=== PATIENT | female | born 1940 | race Caucasian/White ===

== ENCOUNTER 2016-09-05 11:01 | Day surgery (SDC) | payer MEDICARE, OTHER ==
--- NOTE | ~2016-09-05 | EGD ---
EGD REPORT [facility] [address] [address] NAME: DACIA HERNANDEZ : [birth year] STATUS : REG [facility]#: [id number] AGE: 75 ADM/REG DATE : 09/05/16 MR#: [id number] REPORT SERV DATE: 09/05/16 DICTATED BY: SRIDEVI VINSON DATE: 09/05/16 REPORT STATUS : Draft TRANSCRIBED BY: [employer] DATE: 09/05/16 [facility] Patient Name: Dacia Hernandez Date of : 1940 Attending MD: SRIDEVI VINSON MD Procedure Date No Time: 09/05/2016 Procedure: Colonoscopy Indications: Heme positive stool, FH of Colon Cancer -distant relative Referring MD: GALLO LLAMAS Medicines: as per anesthesia Complications: No immediate complications. Procedure: After I obtained informed consent, the scope was passed under direct vision. Throughout the procedure, the patient's blood pressure, pulse, and oxygen saturations were monitored continuously. The PCF [id number] was introduced through the anus and advanced to the cecum, identified by appendiceal orifice and ileocecal valve. The colonoscopy was somewhat difficult due to restricted mobility of the colon, significant looping and a tortuous colon. The patient tolerated the procedure. The quality of the bowel preparation was adequate to identify polyps. Findings: The perianal and digital rectal examinations were normal. A few small and large-mouthed diverticula were found in the sigmoid colon. Internal hemorrhoids were found during endoscopy and were mild. Impression: - Diverticulosis in the sigmoid colon. - Internal hemorrhoids. Recommendation: - Continue present medications. Procedure Code(s): --- Professional --- 80652, Colonoscopy, flexible, proximal to splenic flexure; diagnostic, with or without collection of specimen(s) by brushing or washing, with or without colon decompression (separate procedure) Diagnosis Code(s): --- Professional --- K64.8, Other hemorrhoids K57.30, Diverticulosis of large intestine without perforation or abscess without bleeding R19.5, Other fecal abnormalities EGD REPORT [place] [id number] [address] [id number] NAME: DACIA HERNANDEZ : [birth year] STATUS : REG [facility] PAT#: [id number] AGE: 75 ADM/REG DATE : 09/05/16 MR#: [id number] REPORT SERV DATE: 09/05/16 DICTATED BY: SRIDEVI VINSON. DATE: 09/05/16 REPORT STATUS : Draft TRANSCRIBED BY: [employer] DATE: 09/05/16 Z80.0, Family history of malignant neoplasm of digestive organs CPT copyright 2013 [employer]. All rights reserved. The codes documented in this report are preliminary and upon supervisor transcribing operators review may be revised to meet current compliance requirements. SRIDEVI VINSON MD 09/05/2016 1:48 PM This report has been signed electronically. Number of Addenda: 0 Note Initiated On: 09/05/2016 1:17 PM Scope Withdrawal Time 0 hours 9 minutes 21 seconds [facility] [address] [id number]
--- NOTE | ~2016-09-05 | EGD ---
EGD REPORT [facility] [address] [address] NAME: DACIA HERNANDEZ : [birth year] STATUS : REG [facility]#: [id number] AGE: 75 ADM/REG DATE : 09/05/16 MR#: [id number] REPORT SERV DATE: 09/05/16 DICTATED BY: SRIDEVI VINSON DATE: 09/05/16 REPORT STATUS : Draft TRANSCRIBED BY: [employer] DATE: 09/05/16 End[facility] Center Patient Name: Dacia Hernandez Date of : 1940 Attending MD: SRIDEVI VISNON MD Procedure Date No Time: 09/05/2016 Procedure: Upper GI endoscopy Indications: Heme positive stool, Personal history of peptic ulcer disease Referring MD: GALLO LLAMAS Medicines: as per anesthesia Complications: No immediate complications. Procedure: Pre-Anesthesia Assessment: - ASA Grade Assessment: III - A patient with severe systemic disease. After obtaining informed consent, the endoscope was passed under direct vision. Throughout the procedure, the patient's blood pressure, pulse, and oxygen saturations were monitored continuously. The GIF H190 [id number] was introduced through the mouth, and advanced to the third part of duodenum. The upper GI endoscopy was accomplished without difficulty. The patient tolerated the procedure well. Findings: The examined esophagus was normal. Localized mild inflammation characterized by erythema was found in the gastric antrum. Biopsies were taken with a cold forceps for histology. The cardia and gastric fundus were normal on retroflexion. The examined duodenum was normal. Impression: - Normal esophagus. - Gastritis. Biopsied. - Normal examined duodenum. Recommendation: - Await pathology results. Procedure Code(s): --- Professional --- 64062, Esophagogastroduodenoscopy, flexible, transoral; with biopsy, single or multiple Diagnosis Code(s): --- Professional --- K29.70, Gastritis, unspecified, without bleeding R19.5, Other fecal abnormalities Z87.11, Personal history of peptic ulcer disease EGD REPORT [facility] [address] [place], [place] [address]. [address] NAME: DACIA HERNANDEZ : [birth year] STATUS : REG [facility] PAT#: [id number] AGE: 75 ADM/REG DATE : 09/05/16 MR#: [id number] REPORT SERV DATE: 09/05/16 DICTATED BY: SRIDEVI VINSON. DATE: 09/05/16 REPORT STATUS : Draft TRANSCRIBED BY: [employer] DATE: 09/05/16 CPT copyright 2013 [employer]. All rights reserved. The codes documented in this report are preliminary and upon edge drummer review may be revised to meet current compliance requirements. SRIDEVI VINSON MD 09/05/2016 1:18 PM This report has been signed electronically. Number of Addenda: 0 Note Initiated On: 09/05/2016 12:58 PM Scope Withdrawal Time 0 hours 0 minutes 0 seconds [address] [place] [address]
[~2016-09-05 11:01] MED LIST: ASAB PO; BEN25 PO; C1 PO; CARD30 PO; CHLORTHALID50 MG OR; COREG25 PO; COUMADIN6 MG PO; COZ25 PO; COZ50 PO; FISH-EPA1000 MG PO; GLUCCHONDR PO; GLUCOSAMINE 1500 MG; HYGROTON 25 MG25 MG OR; JANTOVEN5 MG PO; JANTOVEN7.5 MG PO; KLOR-CON M2020 MEQ PO; LIPITOR10 PO; LIPITOR20 PO; LIPITOR40 PO; MULTIPLE VIT PO; PCET PO; PLAQ200B PO; PROTONIX PO; RYTHMOL SR325 MG PO; TORSEMIDE PO; TUMSROLL PO; TYLENOL PM PO; VITAMIN C100 MG PO; VITAMIN D31000 UNIT PO; ZANTAC150 MG PO
[2016-09-05 11:52] LABS: INTERNATIONAL NORMAL RATI 1.7 UNITS (-)
== END 2016-09-05 23:59 | disposition home or self-care (01) ==
LOC: DMU 11:01
PROVIDERS: Anesthesiology; Internal Medicine Gastroenterology
PROC: 0DB68ZX Excision of Stomach, Via Natural or Artificial Opening Endoscopic, Diagnostic (ICD-10-PCS; principal; 2016-09-05 09:00)
PROC: 0DJD8ZZ Inspection of Lower Intestinal Tract, Via Natural or Artificial Opening Endoscopic (ICD-10-PCS; 2016-09-05 09:00)
DX: K29.60 Other gastritis without bleeding (principal); R19.5 Other fecal abnormalities; Z87.11 Personal history of peptic ulcer disease; I10 Essential (primary) hypertension; I48.91 Unspecified atrial fibrillation; Z79.01 Long term (current) use of anticoagulants; G57.33 Lesion of lateral popliteal nerve, bilateral lower limbs; K64.8 Other hemorrhoids; K57.30 Diverticulosis of large intestine without perforation or abscess without bleeding; Z80.0 Family history of malignant neoplasm of digestive organs; Z79.82 Long term (current) use of aspirin; Z79.891 Long term (current) use of opiate analgesic; Z79.899 Other long term (current) drug therapy
CPT/HCPCS: 85610; 88305